=== PATIENT | female | born 1975 | race African-American/Black ===

== ENCOUNTER 2021-05-31 07:43 | Day surgery (SDC) | payer BC ==
[2021-05-29 14:22] VITALS: BMI 43.4
[2021-05-31] MEDS ORDERED: PROPOFOL 20 ML ONE ×3 (08:09)
[2021-05-31 10:02] VITALS: TEMP 97.6
[2021-05-31 10:04] VITALS: BP 110/60; PULSE 70
== END 2021-05-31 11:00 | disposition home or self-care (01) ==
LOC: FASU-ENDO 07:43
PROVIDERS: ATTEND Internal Medicine Gastroenterology
PROC: 0DB68ZX Excision of Stomach, Via Natural or Artificial Opening Endoscopic, Diagnostic (ICD-10-PCS; 2021-05-31)
PROC: 0DB98ZX Excision of Duodenum, Via Natural or Artificial Opening Endoscopic, Diagnostic (ICD-10-PCS; principal; 2021-05-31 09:24)
DX: Z01.818 Encounter for other preprocedural examination (principal); K29.50 Unspecified chronic gastritis without bleeding; R12 Heartburn; Z98.84 Bariatric surgery status
CPT/HCPCS: 84703; 88305-TC